=== PATIENT | male | born 1965 | race Caucasian/White ===

== ENCOUNTER 2019-12-20 15:56 | Emergency (ER) | payer BC ==
[2019-12-20] MEDS ORDERED: NALOXONE HCL 0.4 MG/ML VIAL ONE ×2 (16:04→18:11)
[2019-12-20 16:05] VITALS: BMI 26.6
[2019-12-20] MEDS ORDERED: NALOXONE HCL 0.4 MG/ML VIAL IVPUSH ONE ×2 (16:27→18:10)
[2019-12-20] MEDS ORDERED: NALOXONE HCL 2 MG in DEXTROSE 5%-WATER - 495 ML IV SCH (16:30)
[2019-12-20 16:46] LABS: BASO % 0.1 % (0-2.0); HEMATOCRIT 41.6 % (35.4-49); HEMOGLOBIN 13.2 GM/dL (11.7-16.9); LYMPH % 2.6 % (8-40); MCH 32.7 pg (25.7-33.7); MCHC 31.8 g/dl (32.0-35.9); MEAN CELL VOLUME 102.8 fl (80-96); MEAN PLT VOLUME 8.1 fl (7.5-11.1); MONO % 3.9 % (3.8-10.2); NEUT % 93.4 % (42.8-82.8); PLATELET COUNT 179 K/MM3 (134-434); RBC 4.05 M/mm3 (4.00-5.60); RDW 14.9 % (11.9-15.9); WHITE BLOOD COUNT 23.5 K/mm3 (4.0-10.0)
--- NOTE | 2019-12-20 16:52 | PDOC ---
Attending Attestation - Resident Resident Name: Wayne Tillman - ED Attending Attestation I have performed the following: I have examined & evaluated the patient, The case was reviewed & discussed with the resident, I agree w/resident's findings & plan, Exceptions are as noted - HPI HPI: 12/20/19 16:49 54 M with h/o drug abuse, seizure disorder, presenting to ED after being found unresponsive on brother's couch. Per EMS, pt was found apneic and unresponsive. Pt was given narcan intranasally x2 with good response. Initial vitals notable for hypoxia 80% on NRB. Upon arrival to ED, pt awake, alert. O2 sat 100% on NC. Pt adamantly denies taking anything today. While in ED, pt was noted to become more lethargic and obtunded, requiring repeat doses of narcan, with seemingly good response. - Physicial Exam PE: 12/20/19 16:51 See resident exam - Critical Care Time Total Critical Care Time: 45 Critical Care Statement: The care of this patient involved high complexity decision making to prevent further life threatening deterioration of the patient's condition and/or to evaluate & treat vital organ system(s) failure or risk of failure. - Medical Decision Making 12/20/19 16:51 54 M found unresponsive. Suspect opiate overdose given apnea and reversal with narcan in the field. However, pt continues to be somnolent in ED despite repeated doses of narcan. Consider seizure with post-ictal period vs encephalopathy. - Labs - CT head - Tox screen Discharge - Discharge Information Problems reviewed: Yes Clinical Impression/Diagnosis: LADONNA (acute kidney injury), Elevated liver enzymes, Respiration slowed or stopped, Troponin I above reference range, Hyperkalemia AMS (altered mental status) Qualifiers: Altered mental status type: unspecified Qualified Code(s): R41.82 - Altered mental status, unspecified Rhabdomyolysis Qualifiers: Rhabdomyolysis type: non-traumatic Qualified Code(s): M62.82 - Rhabdomyolysis Condition: Fair Disposition: AGAINST MEDICAL ADVICE - Additional Discharge Information Prescriptions: Cefdinir [Omnicef -] 300 mg PO BID #20 capsule - Follow up/Referral Referrals: Juan Antonio Rosenthal [Other] - Patient Discharge Instructions Patient Printed Discharge Instructions: DI for Hyperkalemia, DI for Rhabdomyolysis, DI for Altered Mental Status Additional Instructions: You are leaving AGAINST MEDICAL ADVICE (AMA). You came in with altered mentation and you were not breathing enough times per minute. We resuscitated you with fluids and medicine, including antibiotics. You decided to leave against medical advice and have demonstrated that you are alert, oriented, and aware of the potential consequences of leaving AMA. Please follow-up immediately with Dr. Rosenthal. You stated you will get on a bus tomorrow and go home to your . Please see Dr. Rosenthal as soon as possible upon your return. We have sent antibiotics to your pharmacy and will be there waiting. - Post Discharge Activity
[2019-12-20 17:15] LABS: ALBUMIN 4.3 g/dl (3.4-5.0); BILIRUBIN,TOTAL 0.4 mg/dL (0.2-1); BLOOD UREA NITROGEN 36.3 mg/dL (7-18); CALCIUM 8.6 mg/dL (8.5-10.1); POTASSIUM 5.7 mmol/L (3.5-5.1); TOT PROT 7.3 g/dl (6.4-8.2)
[2019-12-20] MEDS ORDERED: CALCIUM CHLORIDE 10% 1 GM/10 ML *VIAL IVPUSH ONE (17:51)
[2019-12-20] MEDS ORDERED: SODIUM CHLORIDE 1,000 ML IV STA ×2 (17:53→19:06)
[2019-12-20] MEDS ORDERED: CALCIUM CHLORIDE 1 GM/10 ML *DISP.SYRIN ONE (17:54)
[2019-12-20 18:25] LABS: PLATELET ESTIMATE ADEQUATE
[2019-12-20] MEDS ORDERED: CEFTRIAXONE 2 GM-D5W BAG 2 GM/50 ML BAG IVPB ONE (18:27)
--- NOTE | 2019-12-20 18:37 | PDOC ---
*Physical Exam - Vital Signs Last Vital Signs Temp Pulse Resp BP Pulse Ox 97.3 F L 76 15 126/64 99 12/20/19 15:58 12/20/19 17:00 12/20/19 17:00 12/20/19 17:00 12/20/19 17:00 - Physical Exam 12/20/19 18:35 Patient endorsed to me by Dr. Brambila patient is a 54-year-old male with history of mitral valve replacement, hep C, CVA, hyperlipidemia, seizure disorder presented to the ER with altered mental status and diaphoresis. Patient's clinical condition initially improved with Narcan administration. Patient required additional doses of Narcan due to increased lethargy and was initiated on Narcan drip. On my exam, patient is noted to be somnolent but easily arousable, alert and oriented x3, follows commands and is moving all extremities symmetrically. Patient is noted to be diaphoretic, normotensive with a heart rate of 88.No meningeal signs are present, lungs are clear to auscultation bilaterally; abdomen is soft and nontender. There is no petechial rash and distal pulses are normal and equal bilaterally. Patient CBC is noted for leukocytosis of 23.5 with predominance of neutrophils. CMP reveals hyperkalemia of 5.7 with EKG revealing hyperacute T waves. Urine creatinine elevated without previously available values for comparison consistent with LADONNA. Patient's LFTs are minimally elevated. CPK and troponin are also mildly elevated. Differential diagnosis includes sepsis versus meningitis versus heatstroke versus metabolic encephalopathy. CT of head shows no evidence of acute intracranial pathology. Will obtain blood and urine cultures. Will cover with ceftriaxone-2 g IV piggyback. Will consider LP. We will continue to aggressively hydrate. 12/20/19 19:49 Patient is currently refusing lumbar puncture and Rai catheter. I have explained to the patient of the importance of obtaining CSF for evaluation as well as urine for urinalysis and culture. Patient expressed understanding but is currently refusing. 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 12/20/19 21:19 Patient reassessed. Patient is ANO x3, able to ambulate to the bathroom without difficulty. Patient is wishing to leave the emergency department at this time. Have advised the patient of the seriousness of his condition. He is expressed understanding. Of also advised the patient that he is at risk of multiorgan failure, severe disability, seizure, and even . Patient has expressed understanding of the risk associated. Patient's brother is noted to be at bedside and is expressed understanding as well. Will sign out AMA. ED Treatment Course - LABORATORY CBC & Chemistry Diagram: 12/20/19 16:20 12/20/19 16:20 - ADDITIONAL ORDERS Additional order review: Laboratory Results 12/20/19 12/20/19 16:31 16:20 Sodium 136 Potassium 5.7 H Chloride 99 Carbon Dioxide 22 Anion Gap 15 BUN 36.3 H Creatinine 2.0 H Est GFR (CKD-EPI)AfAm 42.29 Est GFR (CKD-EPI)NonAf 36.49 Random Glucose 145 H Calcium 8.6 Total Bilirubin 0.4 AST 215 H ALT 128 H Alkaline Phosphatase 117 Creatine Kinase 3773 H Creatine Kinase Index 2.6 CK-MB (CK-2) 98.9 H Troponin I 0.13 H Total Protein 7.3 Albumin 4.3 TSH 1.19 Salicylates < 1.7 L Acetaminophen <2.0 12/20/19 16:20 RBC 4.05 MCV 102.8 H MCHC 31.8 L RDW 14.9 MPV 8.1 Neutrophils % 93.4 H Lymphocytes % 2.6 L Monocytes % 3.9 Eosinophils % 0.0 Basophils % 0.1 - Medications Given in the ED: ED Medications Discontinued Medications Generic Name Dose Route Start Last Admin Trade Name Freq PRN Reason Stop Dose Admin Calcium Chloride 1 gm 12/20/19 17:51 12/20/19 18:00 Calcium Chloride 10% - IVPUSH 12/20/19 17:52 1 gm ONCE ONE Administration Naloxone HCl 0.4 mg 12/20/19 16:27 12/20/19 16:10 Narcan - IVPUSH 12/20/19 16:28 0.4 mg ONCE ONE Administration Naloxone HCl 0.4 mg 12/20/19 18:10 12/20/19 18:27 Narcan - IVPUSH 12/20/19 18:11 0.4 mg ONCE ONE Administration Discharge - Discharge Information Problems reviewed: Yes Clinical Impression/Diagnosis: LADONNA (acute kidney injury), Elevated liver enzymes, Respiration slowed or stopp ed, Troponin I above reference range, Hyperkalemia AMS (altered mental status) Qualifiers: Altered mental status type: unspecified Qualified Code(s): R41.82 - Altered mental status, unspecified Rhabdomyolysis Qualifiers: Rhabdomyolysis type: non-traumatic Qualified Code(s): M62.82 - Rhabdomyolysis Condition: Fair Disposition: AGAINST MEDICAL ADVICE - Additional Discharge Information Prescriptions: Cefdinir [Omnicef -] 300 mg PO BID #20 capsule - Follow up/Referral Referrals: Juan Antonio Rosenthal [Other] - Patient Discharge Instructions Patient Printed Discharge Instructions: DI for Hyperkalemia, DI for Rhabdomyolysis, DI for Altered Mental Status Additional Instructions: You are leaving AGAINST MEDICAL ADVICE (AMA). You came in with altered mentation and you were not breathing enough times per minute. We resuscitated you with fluids and medicine, including antibiotics. You decided to leave against medical advice and have demonstrated that you are alert, oriented, and aware of the potential consequences of leaving AMA. Please follow-up immediately with Dr. Rosenthal. You stated you will get on a bus tomorrow and go home to your . Please see Dr. Rosenthal as soon as possible upon your return. We have sent antibiotics to your pharmacy and will be there waiting. - Post Discharge Activity
--- NOTE | 2019-12-20 18:42 | PDOC ---
History of Present Illness - General Chief Complaint: Overdose Stated Complaint: OVERDOSE Time Seen by Provider: 12/20/19 16:26 - History of Present Illness Initial Comments: 54yo M w/ PMH HCV, LA, CVA, valve replacement p/w AMS and respiratory depression. He lives in [facility]. Today he took a bus down here to visit his brother. Upon patient's arrival at the brother's house, the brother noticed the patient sweating profusely and "acting different." Patient sat down in front of the air conditioner and drank some water. Brother left him be for a while and when he returned found patient unresponsive. 911 was called. EMS Fire claims they found patient pulseless and began CPR. EMS stated bradycardia was then palpated and p inpoint pupils were seen on exam. Naloxone was given, and fire/EMS claims a positive response. Pt was started on 15L NRB and brought to the ED. Upon arrival he was shivering, lethargic, bradypnic, but arousable. He was alert but oriented x0. He was protecting his airway and was switched to 6L NC w/ etCO2. PE on arrival: V/S: 99.4deg F (rectal), 103bpm, 12RR, 152/98, 100% 6L NC. General: lethargic, awake, oriented x0, NAD Neuro: moves all extremities but weak and cannot sustain arm or leg raise. Pupils are constricted and reactive. testing for CN and sensation, reflexes, and gait deferred. HEENT:AC/NT, Ears TM w/ good light reflex b/l, eyes constricted but PEERLA, oral [place] dry Lungs/chest: vertical scar over sternum, likely from cardiac surgery. Lungs were rhoncorous with slightly diminished sounds on the R. CV: tachycardic and regular with an S1 murmur. 1+ radial pulses b/l and 1+ PT pulses b/l. Hands cold and clammy. ABD: no rashes or deformities, scars. Skin: diaphoretic, cool, clammy. He maintained >96% SpO2 as long as he was stimulated every minute or so. Naloxon e 0.4mg IVP was administered, which seemed to have an effect. It was not enough such that he woke up and stayed awake, so he was started on a naloxone drip. He seemed to slowly improve, however he was not improving enough that we were convinced he had overdosed. We tried a bolus 0.4mg which did not have any observed effect. We continued to reevaluate him and observed him slowly become a/o x3 without complication. His respiratory depression also slowly resolved. By this time we felt there was enough medical reason to admit him. He adamantly refused. His was able to convince him to stay the night with the hope of transferring him to [facility] tomorrow 12/21/2019. While we were working on the admission to [facility] he decided to AMA. We informed him of the potential consequences, yet he demanded to leave the hospital. 12/20/19 22:46 Past History - Medical History Allergies/Adverse Reactions: Allergies Allergy/AdvReac Type Severity Reaction Status Date / Time No Known Allergies Allergy Verified 12/20/19 16:05 Home Medications: Ambulatory Orders Aspirin [Aspirin EC] 81 mg PO DAILY 12/20/19 Atorvastatin Ca [Lipitor] 20 mg PO HS 12/20/19 Cefdinir [Omnicef -] 300 mg PO BID #20 capsule 12/20/19 Diltiazem Cd [Cardizem Cd -] 180 mg PO DAILY 12/20/19 Lacosamide [Vimpat -] 150 mg PO BID 12/20/19 Meloxicam 15 mg PO DAILY 12/20/19 Tamsulosin HCl [Flomax] 0.4 mg PO DAILY 12/20/19 COPD: Yes - Surgical History Cardiac Surgery: (valve replacement) - Immunization History Immunization Up to Date: No - Psycho-Social/Smoking History Smoking History: Unknown if ever smoked - Substance Abuse Hx (Audit-C & DAST Scrn) In the last yr the pt used illegal drug/Rx for NonMed reason: Yes Score: Yes response is considered Positive: 1 Screen Result (Positive result requires Nsg. DAST-10): Positive *Physical Exam - Vital Signs Last Vital Signs Temp Pulse Resp BP Pulse Ox 97.3 F L 103 H 22 H 152/98 98 12/20/19 15:58 12/20/19 15:58 12/20/19 15:58 12/20/19 15:58 12/20/19 16:10 ED Treatment Course - LABORATORY CBC & Chemistry Diagram: 12/20/19 16:20 12/20/19 16:20 - Medications Given in the ED: ED Medications Discontinued Medications Generic Name Dose Route Start Last Admin Trade Name Nevaeh PRN Reason Stop Dose Admin Naloxone HCl 0.4 mg 12/20/19 16:27 12/20/19 16:10 Narcan - IVPUSH 12/20/19 16:28 0.4 mg ONCE ONE Administration Discharge - Discharge Information Problems reviewed: Yes Clinical Impression/Diagnosis: LADONNA (acute kidney injury), Elevated liver enzymes, Respiration slowed or stopped, Troponin I above reference range, Hyperkalemia AMS (altered mental status) Qualifiers: Altered mental status type: unspecified Qualified Code(s): R41.82 - Altered mental status, unspecified Rhabdomyolysis Qualifiers: Rhabdomyolysis type: non-traumatic Qualified Code(s): M62.82 - Rhabdomyolysis Condition: Fair Disposition: AGAINST MEDICAL ADVICE - Additional Discharge Information Prescriptions: Cefdinir [Omnicef -] 300 mg PO BID #20 capsule - Follow up/Referral Referrals: Juan Antonio Rosenthal [Other] - Patient Discharge Instructions Patient Printed Discharge Instructions: DI for Hyperkalemia, DI for Rhabdomyolysis, DI for Altered Mental Status Additional Instructions: You are leaving AGAINST MEDICAL ADVICE (AMA). You came in with altered mentation and you were not breathing enough times per minute. We resuscitated you with fluids and medicine, including antibiotics. You decided to leave against medical advice and have demonstrated that you are alert, oriented, and aware of the potential consequences of leaving AMA. Please follow-up immediately with Dr. Rosenthal. You stated you will get on a bus tomorrow and go home to your . Please see Dr. Rosenthal as soon as possible upon your return. We have sent antibiotics to your pharmacy and will be there waiting. - Post Discharge Activity
[2019-12-20 20:25] LABS: EPI CELLS 1 /uL (0-25.1); HYALINE CASTS 0 /uL (0-3.1); URINE APPEARANCE CLEAR; URINE BACTERIA 3 /uL (0-1359); URINE BILIRUBIN NEGATIVE (NEGATIVE); URINE COLOR YELLOW; URINE GLUCOSE (UA) NEGATIVE (NEGATIVE); URINE KETONE NEGATIVE (NEGATIVE); URINE LEUK ESTERASE NEGATIVE (NEGATIVE); URINE NITRITE NEGATIVE (NEGATIVE); URINE PROTEIN NEGATIVE (NEGATIVE); URINE RBC 2 /uL (0-23.9); URINE UROBILINOGEN 0.2 mg/dL (0.2-1.0); URINE WBC 1 /uL (0-25.8)
[2019-12-20] MEDS ORDERED: VANCOMYCIN HCL 1,500 MG in DEXTROSE 5%-WATER - 500 ML IVPB ONE (20:30)
[2019-12-20 21:04] VITALS: BP 165/78; PULSE 81; TEMP 97.7
[2019-12-20 21:31] LABS: METHADONE, UR NEGATIVE ng/ml (CUTOFF=300); OPIATES, URI NEGATIVE ng/ml (CUTOFF=300); PHENCYCLIDINE,URINE NEGATIVE ng/ml (CUTOFF=25); URINE AMPHETAMINES NEGATIVE ng/ml (CUTOFF=500); URINE BARBITURATES NEGATIVE ng/ml (CUTOFF=200); URINE BENZODIAZEPINES NEGATIVE ng/ml (CUTOFF=200)
[2019-12-20 21:37] LABS: COCAINE, UR NEGATIVE ng/ml (CUTOFF=300)
--- NOTE | 2019-12-21 11:27 | EKG ---
Test Reason : Blood Pressure : / mmHG Vent. Rate : 075 BPM Atrial Rate : 075 BPM P-R Int : 208 ms QRS Dur : 114 ms QT Int : 416 ms P-R-T Axes : 056 046 066 degrees QTc Int : 464 ms NORMAL SINUS RHYTHM INCOMPLETE RIGHT BUNDLE BRANCH BLOCK ST ELEVATION, CONSIDER EARLY REPOLARIZATION, PERICARDITIS, OR INJURY ABNORMAL ECG NO PREVIOUS ECGS AVAILABLE Confirmed by MARYJANE GARG MD ([id number]) on 12/21/2019 11:27:30 AM Referred By: Confirmed By:MARYJANE GARG MD
== END 2019-12-20 21:50 | disposition left against medical advice (07) ==
LOC: JER 15:56
PROC: 3E0337Z Introduction of Electrolytic and Water Balance Substance into Peripheral Vein, Percutaneous Approach (ICD-10-PCS; principal; 2019-12-20)
PROC: 3E033GC Introduction of Other Therapeutic Substance into Peripheral Vein, Percutaneous Approach (ICD-10-PCS; principal; 2019-12-20)
DX: R41.82 Altered mental status, unspecified (principal); N17.9 Acute kidney failure, unspecified; M62.82 Rhabdomyolysis; R06.89 Other abnormalities of breathing; E87.5 Hyperkalemia
CPT/HCPCS: 36415; 70450-TC; 71045-TC-FY; 80053; 80307; 81003; 82140; 82550; 82553; 83605; 84146; 84443; 84484; 85025; 87040; 87086; 93005; 93010; 99291; G0480